=== PATIENT | female | born 1995 | race American Indian/Alaskan Native ===

== ENCOUNTER 2018-02-16 23:50 | Emergency (ER) | payer SELFPAY ==
[2018-02-17] MEDS ORDERED: PEPCID IV ONE (00:38)
[2018-02-17] MEDS ORDERED: BENADRYL IV ONE (00:38)
[2018-02-17 00:58] LABS: Bilirubin,Urine NEG (Negative); Blood,Urine NEG (Negative); Color,Urine Straw (Yellow); Protein,Urine <15 mg/dL mg/dL (Negative); Urobilinogen,Urine < 2.0 mg/dL (<2.0); WBC,Urine < 1.0 /HPF (0.0-6.0)
[2018-02-17 01:05] LABS: HCG Qualitative,Urine Negative (Negative); RBC,Urine < 1.0 /HPF (0.0-6.0)
[2018-02-17 01:11] LABS: Basophils # (Auto) 0.1 K/mm3 (0.0-0.1); Basophils % (Auto) 0.8 % (0.0-1.8); Eosinophils # (Auto) 0.2 K/mm3 (0.0-0.4); Eosinophils % (Auto) 1.9 % (0.0-4.3); Hematocrit 39.8 % (30.3-42.9); Hemoglobin 13.6 gm/dl (10.1-14.3); Lymphocytes # (Auto) 3.5 K/mm3 (1.2-5.4); Lymphocytes % (Auto) 38.4 % (13.4-35.0); Mean Corpuscular HGB Conc 34 % (30-34); Mean Corpuscular Hemoglobin 30 pg (28-32); Mean Corpuscular Volume 87 fl (79-97); Monocytes # (Auto) 0.5 K/mm3 (0.0-0.8); Monocytes % (Auto) 5.6 % (0.0-7.3); Platelet Count 334 K/mm3 (140-440); Red Blood Count 4.55 M/mm3 (3.65-5.03)
[2018-02-17 01:27] LABS: BUN/Creatinine Ratio 8; Blood Urea Nitrogen 5 mg/dL (7-17); Calcium 9.2 mg/dL (8.4-10.2); Hemolysis Index 10
[2018-02-17] MEDS ORDERED: ATIVAN PO ONE (01:40)
[2018-02-17] MEDS ORDERED: NORCO 10/325 PO ONE (01:40)
--- NOTE | 2018-02-17 01:57 | Emergency Department Report ---
ED Chest Pain HPI - General Chief Complaint: Allergic Reaction Stated Complaint: ETOH Time Seen by Provider: 02/17/18 01:39 Source: patient, EMS Mode of arrival: Stretcher Limitations: No Limitations - History of Present Illness Initial Comments: 22-year-old woman presents with initial complaint of concern about allergic reaction after having drunk a small amount of pineapple juice in a cocktail that she was taken earlier in the evening, with a history of severe pineapple allergy, which she experienced earlier in childhood. Her most immediate direct symptom was a sensation of tingling of her lip, without any swelling, no swelling of her tongue or airway, no difficulty breathing, she's had no wheezing or shortness of breath, no abdominal pain, and no nausea or vomiting, and no skin rash. However, patient's most significant concern is for a chronic left anterior chest pain, which has been present for over a year, on near daily basis, for which she has had prior emergency department visits, with no distinctive findings during those visits, the patient has not sought further evaluation with specialist, and she was concerned about possible seriousness of any findings. Nonetheless, she has lived with the anxiety, and has persistent concern about the chest discomfort, feeling that it may be her heart. She has no defined history of heart trouble, but has not had formal vibration for this. She has no history of hypertension, although she did have preeclampsia during her with her child one year ago, but has not had any persistent hypertension since that time. Patient has no other symptoms, but does complain of chronic anxiety as well. MD Complaint: chest pain -: month(s) Onset: during rest Pain Location: left chest Pain Radiation: none Severity scale (0 -10): 8 Quality: tightness, sharp Consistency: intermittent Improves With: nothing Worsens With: inspiration, movement re: denies: nausea, vomting, diaphoresis Other Symptoms: denies: cough, fever, syncope, palpitations Treatments Prior to Arrival: none Aspirin use within the Past 7 Days: (0) No - Related Data On Oral Contraceptives: No Previous Rx's Medication Instructions Recorded Last Taken Type Acetaminophen/Codeine [Tylenol 1 tab PO Q6H PRN #15 tab 02/17/18 Unknown Rx /Codeine # 3 tab] LORazepam [Ativan] 0.5 mg PO TID PRN #30 tablet 06/03/18 Unknown Rx Meloxicam 7.5 mg PO DAILY #30 tablet 02/17/18 Unknown Rx Allergies Allergy/AdvReac Type Severity Reaction Status Date / Time pineapple Allergy Swelling Verified 02/17/18 00:36 Heart Score - HEART Score History: Slightly suspicious EKG: Normal Age: < 45 Risk factors: No known risk factors Troponin: < normal limit HEART Score: 0 ED Review of Systems ROS: Stated complaint: ETOH Other details as noted in HPI Comment: All other systems reviewed and negative Constitutional: see HPI. denies: chills, diaphoresis, fever ENT: denies: ear pain, throat pain Respiratory: denies: wheezing Cardiovascular: chest pain. denies: palpitations, dyspnea on exertion, edema, syncope Endocrine: no symptoms reported Gastrointestinal: denies: abdominal pain, nausea, diarrhea Genitourinary: denies: urgency, dysuria, discharge Musculoskeletal: denies: back pain, joint swelling, arthralgia Skin: denies: rash, lesions Neurological: as per HPI Psychiatric: anxiety Hematological/Lymphatic: denies: easy bleeding, easy bruising ED Past Medical Hx - Past Medical History Previous Medical History?: Yes Hx Hypertension: Yes (due to stress , no med) Additional medical history: Preeclampsia at last , resolved at delivery - Surgical History Past Surgical History?: Yes Additional Surgical History: L't shoulder - Social History Smoking Status: Former Smoker Substance Use Type: None, Marijuana - Medications Home Medications: Home Medications Medication Instructions Recorded Confirmed Last Taken Type Acetaminophen/Codeine [Tylenol 1 tab PO Q6H PRN #15 tab 02/17/18 Unknown Rx /Codeine # 3 tab] LORazepam [Ativan] 0.5 mg PO TID PRN #30 tablet 02/17/18 Unknown Rx Meloxicam 7.5 mg PO DAILY #30 tablet 02/17/18 Unknown Rx ED Physical Exam - General Limitations: No Limitations General appearance: alert, anxious - Head Head exam: Present: atraumatic, normocephalic - Eye Eye exam: Present: PERRL, EOMI - ENT ENT exam: Present: normal orophraynx, mucous membranes moist - Neck Neck exam: Present: normal inspection, full ROM. Absent: tenderness - Respiratory Respiratory exam: Present: normal lung sounds bilaterally, chest wall tenderness (marked tenderness to palpation left anterior chest wall along pectoralis muscle and left costochondral area, negligible tenderness on right) - Cardiovascular Cardiovascular Exam: Present: regular rate, normal rhythm, normal heart sounds. Absent: systolic murmur, diastolic murmur - GI/Abdominal GI/Abdominal exam: Present: soft. Absent: distended, tenderness, guarding, rebound - Rectal Rectal exam: Present: deferred - Extremities Exam Extremities exam: Present: normal inspection. Absent: pedal edema, calf tenderness - Back Exam Back exam: Present: normal inspection. Absent: CVA tenderness (R), CVA tenderness (L) - Neurological Exam Neurological exam: Present: alert, oriented X3 - Psychiatric Psychiatric exam: Present: anxious - Skin Skin exam: Present: warm, dry ED Course Vital Signs 02/17/18 00:16 Temperature 98.6 F Pulse Rate 61 Respiratory 18 Rate Blood Pressure 117/81 O2 Sat by Pulse 98 Oximetry - Reevaluation(s) Reevaluation #1: 02/17/18 03:56 Patient asleep at time of discomfort, still reports discomfort, but has had some relief with treatment for pain and anxiolysis. ED Medical Decision Making - Lab Data Result diagrams: 02/17/18 01:01 02/17/18 01:01 - EKG Data -: EKG Interpreted by Me (normal EKG) EKG shows normal: sinus rhythm Rate: normal - EKG Data When compared to previous EKG there are: previous EKG unavailable - Medical Decision Making Patient has clearcut musculoskeletal anterior chest wall pain, clearly instigated by patient's underlying anxiety. EKG and labs are normal More, this is likely perpetuated by patient serious illnesses, and reluctance to seek additional medical evaluation, either for definitive diagnosis or even for reassurance. I doubt if patient would be satisfied with my reassurance today, I believe the best course is to treat patient symptomatically, and I believe she needs both anxiolytics, as well as mild analgesia. I will give her a short course of lorazepam, stressing that she will need further medical evaluation if she needs any continued medication, and I will give her a short course of meloxicam and codeine to treat her discomfort. Patient encouraged to stretch, deal with stress, and apply local heat for short-term discomfort. She should follow with a primary care physician for repeat evaluation. She may need cardiac evaluation including stress test or provocative nuclear scan if only for reassurance, but this can be arranged with outpatient scheduling. Additionally, patient has no findings whatsoever to suggest an allergic reaction , has been stable with observation, did not require any treatment for an acute allergic reaction. - Differential Diagnosis chest wall pain, pneumonia, acute coronary syndrome, stress reaction Critical Care Time: No Critical care attestation.: If time is entered above; I have spent that time in minutes in the direct care of this critically ill patient, excluding procedure time. ED Disposition Clinical Impression: Non-cardiac chest pain Disposition: TO HOME OR SELFCARE Is pt being admited?: No Does the pt Need Aspirin: No Condition: Stable Instructions: Noncardiac Chest Pain (ED), Chest Pain (ED) Additional Instructions: All of your tests today are normal, and your symptoms today are not at all suggestive of a heart or lung problem, and you have clearly have muscular tenderness in the area of the pectoralis muscle, which is likely brought on by chronic tension or stress. We don't believe that this is serious, and we'll treat you primarily for your discomfort of tension, as well as chest discomfort , with a brief course of an anxiety reliever, which also relax his muscles, called lorazepam. We are also treating the discomfort in her chest with blocks again, which is an anti-inflammatory, as well as codeine, which is a narcotic pain reliever. You should also apply moderate heat to the area of discomfort, 15-30 minutes at a time, 3-4 times per day. There will be no refills for this from this emergency department, and we recommended to have follow-up evaluation with a primary care physician to see how you are improving, and to decide what the most appropriate course of action is. You may resume regular activities without restriction. Prescriptions: Acetaminophen/Codeine [Tylenol /Codeine # 3 tab] 1 tab PO Q6H PRN #15 tab PRN Reason: Pain LORazepam [Ativan] 0.5 mg PO TID PRN #30 tablet PRN Reason: tension or stress Meloxicam 7.5 mg PO DAILY #30 tablet Referrals: PRIMARY CARE, [Primary Care Provider] - 3-5 Days Time of Disposition: 03:52
[2018-02-17 04:20] VITALS: BP 110/70
== END 2018-02-17 04:22 | disposition home or self-care (01) ==
LOC: ED 23:50
DX: R07.9 Chest pain, unspecified (principal); F12.10 Cannabis abuse, uncomplicated
CPT/HCPCS: 36415; 80048; 81001; 81025; 84484; 85025; 93005; 93010; 96374; 96375; 99284; J1200; J2930

== ENCOUNTER 2018-03-04 14:58 | Emergency (ER) | payer SELFPAY ==
[2018-03-04 16:10] LABS: Basophils % (Auto) 0.4 % (0.0-1.8); Eosinophils # (Auto) 0.2 K/mm3 (0.0-0.4); Eosinophils % (Auto) 1.8 % (0.0-4.3); Hematocrit 36.4 % (30.3-42.9); Hemoglobin 12.1 gm/dl (10.1-14.3); Lymphocytes # (Auto) 3.2 K/mm3 (1.2-5.4); Lymphocytes % (Auto) 32.4 % (13.4-35.0); Mean Corpuscular HGB Conc 33 % (30-34); Mean Corpuscular Hemoglobin 30 pg (28-32); Mean Corpuscular Volume 89 fl (79-97); Monocytes # (Auto) 0.7 K/mm3 (0.0-0.8); Monocytes % (Auto) 7.3 % (0.0-7.3); Platelet Count 281 K/mm3 (140-440); Red Blood Count 4.09 M/mm3 (3.65-5.03); Red Cell Distribution Width 14.2 % (13.2-15.2)
[2018-03-04 16:27] LABS: Alanine Aminotransferase 8 units/L (7-56); Albumin 3.3 g/dL (3.9-5); BUN/Creatinine Ratio 18; Blood Urea Nitrogen 11 mg/dL (7-17); Calcium 8.5 mg/dL (8.4-10.2); Hemolysis Index 5; Lipase 13 units/L (13-60)
[2018-03-04 16:35] LABS: Bacteria,Urine 1+ /HPF (Negative); Bilirubin,Urine NEG (Negative); Blood,Urine MOD (Negative); Color,Urine Yellow (Yellow); Mucus,Urine FEW /HPF; Protein,Urine <15 mg/dL mg/dL (Negative); Urobilinogen,Urine < 2.0 mg/dL (<2.0)
[2018-03-04] MEDS ORDERED: KEFLEX PO ONE (22:26)
[2018-03-04] MEDS ORDERED: ZOFRAN ODT PO ONE (22:50)
[2018-03-04] MEDS ORDERED: NORCO 5/325 PO ONE (22:50)
--- NOTE | 2018-03-04 23:06 | Emergency Department Report ---
HPI - General Chief Complaint: Abdominal Pain Time Seen by Provider: 03/04/18 22:21 - HPI HPI: The patient is a 22-year-old female whom presents for evaluation of abdominal pain. The patient reports 1 week of right upper quadrant abdominal pain, 10/ 10in severity, sharp in quality, exacerbated with bending backwards or lying down. The patient denies fever, chills, night sweats, chest pain, dyspnea, diarrhea, blood in the stool, dark tarry stool, hematuria, flank pain, genital discharge, inability to pass flatus. ED Past Medical Hx - Past Medical History Hx Hypertension: Yes (due to stress , no med) Additional medical history: Preeclampsia at last , resolved at delivery - Surgical History Additional Surgical History: L't shoulder - Social History Smoking Status: Never Smoker Substance Use Type: None - Medications Home Medications: Home Medications Medication Instructions Recorded Confirmed Last Taken Type Acetaminophen/Codeine [Tylenol 1 tab PO Q6H PRN #15 tab 02/17/18 Unknown Rx /Codeine # 3 tab] LORazepam [Ativan] 0.5 mg PO TID PRN #30 tablet 02/17/18 Unknown Rx Meloxicam 7.5 mg PO DAILY #30 tablet 02/17/18 Unknown Rx Cephalexin [Keflex] 500 mg PO Q6HR #20 capsule 03/04/18 Unknown Rx Omeprazole Magnesium [PriLOSEC Otc] 20 mg PO QDAY #14 tablet.dr 03/04/18 Unknown Rx Ondansetron [Zofran TAB] 4 mg PO Q8HR PRN #20 tablet 03/04/18 Unknown Rx traMADol [Ultram 50 MG tab] 50 mg PO Q6HR PRN #20 tablet 03/04/18 Unknown Rx ED Review of Systems ROS: Stated complaint: SOB Other details as noted in HPI Constitutional: denies: fever ENT: denies: throat or neck pain Respiratory: denies: cough, shortness of breath Cardiovascular: denies: chest pain Endocrine: denies unexplained weight loss or gain Gastrointestinal: reports abdominal pain, nausea Genitourinary: denies: dysuria Musculoskeletal: denies: leg swelling Skin: denies: rash Neurological: denies: headache Hematological/Lymphatic: denies: easy bleeding or easy bruising Psych: denies sadness or hopelessness Physical Exam - Physical Exam Vital Signs: Vital Signs 03/04/18 03/04/18 15:21 22:58 Temperature 98.4 F Pulse Rate 60 Respiratory 18 18 Rate Blood Pressure 113/74 O2 Sat by Pulse 100 Oximetry Physical Exam: General: well-nourished, well-developed, no acute distress Head: Normocephalic, atraumatic Eyes: normal sclera ENT: Mucous membranes are pink and moist Neck: trachea midline, neck supple, No neck stiffness, no cervical adenopathy Respiratory: Breath sounds equal bilaterally, no wheezing, rales, or rhonchi Cardio: S1 and S2 present, no murmurs, rubs, gallops, capillary refill is brisk Abdomen: Normoactive bowel sounds, soft abdomen, epigastric, right upper quadrant, suprapubic tenderness to palpation present, no rigidity, no guarding or rebound tenderness Chest WALL/Back: No tenderness to palpation of the chest wall, no CVA tenderness with percussion Musc: No pitting edema Skin: No rash Neuro: no facial drooping, normal speech Psych: Normal affect ED Course Vital Signs 03/04/18 03/04/18 15:21 22:58 Temperature 98.4 F Pulse Rate 60 Respiratory 18 18 Rate Blood Pressure 113/74 O2 Sat by Pulse 100 Oximetry ED Medical Decision Making - Lab Data Result diagrams: 03/04/18 15:50 03/04/18 15:50 - Medical Decision Making The patient was seen and examined by myself. The patient is placed on a treating plant operator and continuous pulse ox. On initial evaluation, the patient was found to be in no distress. Evaluation orders are placed. The patient is given a tablet of [place] for her pain. Lab results revealed elevated urine WBC are positive leukocyte esterase, consistent with UTI, and otherwise labs were non-concerning including WBC, hemoglobin, hematocrit, electrolytes, renal function, LFTs, lipase, and neg preg test. The patient is given Keflex for treatment of her UTI. The patient was reevaluated and reported that their symptoms were markedly improved. The patient is stable for discharge with outpatient follow-up. The patient is given follow-up and return instructions. The patient expressed understanding and agreed with the plan. The patient is discharged in stable condition. Critical care attestation.: If time is entered above; I have spent that time in minutes in the direct care of this critically ill patient, excluding procedure time. ED Disposition Clinical Impression: Acute abdominal pain in right upper quadrant, Nausea and vomiting in adult, Acute lower UTI (urinary tract infection) Disposition: - TO HOME OR SELFCARE Is pt being admited?: No Does the pt Need Aspirin: No Condition: Stable Instructions: Abdominal Pain (ED), Urinary Tract Infection in Women (ED), Biliary Colic (ED) Referrals: [facility] [Provider Group] - 3-5 Days SHARDA BAINS DO [Staff Physician] - 3-5 Days Time of Disposition: 23:04
[2018-03-04 23:36] VITALS: BP 131/69
== END 2018-03-04 23:36 | disposition home or self-care (01) ==
LOC: ED 14:58
DX: N39.0 Urinary tract infection, site not specified (principal); R10.11 Right upper quadrant pain; R11.2 Nausea with vomiting, unspecified; I10 Essential (primary) hypertension; Z91.018 Allergy to other foods
CPT/HCPCS: 36415; 80053; 81001; 83690; 85025; Q0162